=== PATIENT | female | born 1995 | race Caucasian/White ===

== ENCOUNTER 2021-02-15 17:35 | Emergency (ER) | payer MEDICAID, OTHER ==
[~2021-02-15] VITALS: Ht 165.1 cm; Wt 68.2 kg
[2021-02-15 17:43] VITALS: BP 131/84
[2021-02-15] MEDS ORDERED: MORPHINE 10 MG/ML 1ML VIAL (J2270) IM ONE (18:45)
--- NOTE | 2021-02-15 20:00 | REP ---
INDICATION: dislocated patella? COMPARISON: None. TECHNIQUE: There are 6 views. FINDINGS: The patella does not appear dislocated on views provided. If there is continued clinical concern consider CT for confirmation. IMPRESSION: The patella does not appear dislocated on the views provided. However, if there is continued clinical concern for patellar dislocation consider CT for confirmation. <Electronically signed by Mookie Padilla > 02/15/211955
== END 2021-02-15 21:28 | disposition home or self-care (01) ==
LOC: M ED 17:35
DX: S83.004A Unspecified dislocation of right patella, initial encounter (principal); V00.121A Fall from non-in-line roller-skates, initial encounter; Y92.015 Private garage of single-family (private) house as the place of occurrence of the external cause; Y93.51 Activity, roller skating (inline) and skateboarding; Y99.9 Unspecified external cause status
CPT/HCPCS: 73564; 96372; 99284; J2270

== ENCOUNTER → 2021-02-16 | Outpatient (CLI) | payer MEDICAID ==
--- NOTE | 2021-02-17 02:05 | REP ---
INDICATION: PATELLOFEMORAL DISORDER. COMPARISON: None. TECHNIQUE: Single sunrise view of the patella FINDINGS: Alberto is normal in contour and position with relation to the femur. Mild overlying soft tissue swelling cannot be excluded. No obvious acute injury. IMPRESSION: Normal appearance and position to the patella. <Electronically signed by Ryne Castro > 02/17/21 [id number]
== END ==
LOC: M SOG 10:40
PROVIDERS: ATTEND Orthopaedic Surgery Sports Medicine
DX: M22.2X1 Patellofemoral disorders, right knee (principal)

== ENCOUNTER → 2021-03-13 | Outpatient (RCR) | payer MEDICAID | LOC: M PT 02-20 10:23 | PROVIDERS: ATTEND Orthopaedic Surgery Sports Medicine | DX: M22.2X1 Patellofemoral disorders, right knee (principal) ==

== ENCOUNTER 2021-04-08 08:58 | Outpatient (RCR) | payer MEDICAID, OTHER | END 2021-04-13 | LOC: M PT 08:58 | PROVIDERS: ATTEND Orthopaedic Surgery Sports Medicine | DX: M22.2X1 Patellofemoral disorders, right knee (principal) ==

== ENCOUNTER 2021-04-15 08:48 | Outpatient (RCR) | payer OTHER | END 2021-05-13 | LOC: M PT 08:48 | PROVIDERS: ATTEND Orthopaedic Surgery Sports Medicine | DX: M22.2X1 Patellofemoral disorders, right knee (principal) ==